=== PATIENT | male | born 1980 | race Caucasian/White ===

== ENCOUNTER 2017-12-27 22:42 | Emergency (ER) | payer OTHER ==
[~2017-12-27] VITALS: Ht 188 cm; Wt 117.9 kg
[~2017-12-27 22:42] MED LIST: AMOX500 PO; Amoxicillin500 MG PO; CHOL10002 PO; CYCL10 PO; Cleocin HCl300 MG PO; DOCU100 PO; HYDACE5 PO; HYDR25SUP PR; IBUP800 PO; METO25 PO; Norco 5-325 Ta1 EACH PO; PRED10 PO; VITAMIN D35000 UNI1 PO; [UNRECOGNIZED DRUG - REMARK]
[2017-12-27 23:18] LABS: BASOPHILS ABSOLUTE AUTO 0.07 K/mm3 (0.00-0.23); BASOPHILS PERCENT AUTO 1 % (0-2); EOSINOPHILS ABSOLUTE AUTO 0.19 K/mm3 (0.00-0.68); EOSINOPHILS PERCENT AUTO 2 % (0-6); Hematocrit 44.6 % (37.0-53.0); Hemoglobin 14.9 g/dL (13.5-17.5); IMMATURE GRAN ABSOLUTE AUTO 0.06 K/mm3 (0.00-0.10); IMMATURE GRAN PERCENT AUTO 1 % (0-1); LYMPHOCYTES ABSOLUTE AUTO 4.43 K/mm3 (0.84-5.20); LYMPHOCYTES PERCENT AUTO 35 % (21-46); MONOCYTES ABSOLUTE AUTO 0.98 K/mm3 (0.16-1.47); MONOCYTES PERCENT AUTO 8 % (4-13); Mean Corpuscular HGB 28.9 pg (26.0-34.0); Mean Corpuscular HGB Conc 33.4 g/dL (31.5-36.5); Mean Corpuscular Volume 86 fL (80-100); Mean Platelet Volume 10.1 fL (9.1-12.4); NEUTROPHILS ABSOLUTE AUTO 6.96 K/mm3 (1.96-9.15); NEUTROPHILS PERCENT AUTO 55 % (41-73); Platelet Count 288 K/mm3 (150-400); RDW Coefficient Variation 11.9 % (11.7-14.2); RDW Standard Deviation 37.9 fL (35.1-46.3); Red Blood Cell Count 5.16 M/mm3 (4.30-5.90); White Blood Cell Count 12.69 K/mm3 (4.00-11.30)
[2017-12-27 23:38] LABS: Alanine Aminotransfer (ALT/SGP 47 U/L (12-78); Albumin, Blood 3.6 g/dL (3.4-5.0); Alk Phos 97 U/L (50-136); Anion Gap 7 mmol/L (6-16); Aspartate Aminotrans (AST/SGOT 22 U/L (12-37); Bilirubin, Total 0.3 mg/dL (0.1-1.0); Blood Urea Nitrogen 11 mg/dL (8-24); Bun/Creatinine Ratio 15.1 (12.0-20.0); CO2, Blood 26 mmol/L (21-32); Calcium, Blood 7.7 mg/dL (8.5-10.1); Chloride, Blood 110 mmol/L (98-108); Creatinine, Blood 0.73 mg/dL (0.60-1.20); Globulin, Blood 3.7 g/dL (2.2-4.0); Glomerular Filtration Rate >60 (60-); Glucose, Blood 82 mg/dL (70-99); Potassium, Blood 3.5 mmol/L (3.5-5.5); Sodium, Blood 143 mmol/L (136-145); Total Protein, Blood 7.3 g/dL (6.4-8.2)
[2017-12-27] MEDS ORDERED: LOSA50 PO (23:43)
[2017-12-27] MEDS ORDERED: BUSP10 PO (23:43)
== END 2017-12-28 02:36 | disposition home or self-care (01) ==
LOC: ER 22:42
PROVIDERS: Emergency Medicine
DX: K63.89 Other specified diseases of intestine (principal); Z88.8 Allergy status to other drugs, medicaments and biological substances; Z79.899 Other long term (current) drug therapy; I10 Essential (primary) hypertension
CPT/HCPCS: 36415; 74177; 80053; 83690; 85025; 96361; 96374; 99284; J1885; J7030; Q9967

== ENCOUNTER → 2020-02-09 | Outpatient (CLI) | payer SELFPAY ==
[~2020-02-09] MED LIST changes: +BUSP10 PO; +LOSA50 PO
[2020-02-09 13:25] LABS: BASOPHILS ABSOLUTE AUTO 0.05 K/mm3 (0.00-0.23); BASOPHILS PERCENT AUTO 0 % (0-2); EOSINOPHILS PERCENT AUTO 1 % (0-6); Hematocrit 47.7 % (37.0-53.0); Hemoglobin 16.5 g/dL (13.5-17.5); IMMATURE GRAN ABSOLUTE AUTO 0.05 K/mm3 (0.00-0.10); IMMATURE GRAN PERCENT AUTO 0 % (0-1); LYMPHOCYTES ABSOLUTE AUTO 2.18 K/mm3 (0.84-5.20); LYMPHOCYTES PERCENT AUTO 16 % (21-46); MONOCYTES ABSOLUTE AUTO 1.02 K/mm3 (0.16-1.47); MONOCYTES PERCENT AUTO 7 % (4-13); Mean Corpuscular HGB 29.5 pg (26.0-34.0); Mean Corpuscular HGB Conc 34.6 g/dL (31.5-36.5); Mean Corpuscular Volume 85 fL (80-100); Mean Platelet Volume 9.9 fL (9.1-12.4); NEUTROPHILS ABSOLUTE AUTO 10.59 K/mm3 (1.96-9.15); NEUTROPHILS PERCENT AUTO 75 % (41-73); Platelet Count 295 K/mm3 (150-400); RDW Coefficient Variation 12.3 % (11.7-14.2); RDW Standard Deviation 38.1 fL (35.1-46.3); Red Blood Cell Count 5.59 M/mm3 (4.30-5.90); White Blood Cell Count 14.09 K/mm3 (4.00-11.30)
[2020-02-09 13:38] LABS: Anion Gap 12 mmol/L (6-16); Blood Urea Nitrogen 10 mg/dL (8-24); Bun/Creatinine Ratio 10.4 (12.0-20.0); CO2, Blood 25 mmol/L (21-32); Calcium, Blood 8.8 mg/dL (8.5-10.1); Chloride, Blood 102 mmol/L (98-108); Creatinine, Blood 0.96 mg/dL (0.60-1.20); Glomerular Filtration Rate >60 (60-); Glucose, Blood 94 mg/dL (70-99); Potassium, Blood 3.7 mmol/L (3.5-5.5); Sodium, Blood 139 mmol/L (136-145)
== END ==
LOC: LAB SHORT 13:20 → LAB EV 13:20
PROVIDERS: Physician Assistant Surgical
DX: I10 Essential (primary) hypertension (principal); J02.9 Acute pharyngitis, unspecified
CPT/HCPCS: 80048; 85025; 87081